=== PATIENT | male | born 1970 | race Caucasian/White ===

== ENCOUNTER 2018-10-16 12:14 | Emergency (ER) | payer OTHER ==
[2018-10-16 12:21] VITALS: TEMP 98.5
[2018-10-16] MEDS ORDERED: LIDOCAINE 1% INJ 10MG/ML (20 ML MDV) SQ ONE (12:29)
[2018-10-16] MEDS ORDERED: DIPH,PERTUS(ACELL)TETVAC-LF 0.5 ML VIAL IM ONE (12:35)
--- NOTE | 2018-10-16 13:07 | ED ---
General Adult HPI - General Chief complaint: Wound/Laceration Stated complaint: Forehead laceration-[facility] Time Seen by Provider: 10/16/18 12:28 Source: patient, RN notes reviewed Mode of arrival: ambulatory Limitations: no limitations - History of Present Illness Initial comments: 48-year-old male presents to the emergency department for a chief complaint of laceration above the left eyebrow. This occurred approximately one hour prior to arrival. Patient was at work when an air hose came loose and the air caused a laceration in the forehead. Patient denies headache. Patient denies any pain in the left eye. Patient does not have any other complaints at this time. Patient does not believe he is up-to-date on tetanus.Patient has no other compla ints at this time including shortness of breath, chest pain, abdominal pain, nausea or vomiting, headache, or visual changes. - Related Data Allergies Allergy/AdvReac Type Severity Reaction Status Date / Time Sulfa (Sulfonamide Allergy Unknown Verified 10/16/18 12:21 Antibiotics) Review of Systems ROS Statement: Those systems with pertinent positive or pertinent negative responses have been documented in the HPI. ROS Other: All systems not noted in ROS Statement are negative. Past Medical History Additional Past Medical History / Comment(s): chronic back pain History of Any Multi-Drug Resistant Organisms: None Reported Past Surgical History: No Surgical Hx Reported Past Psychological History: No Psychological Hx Reported Smoking Status: Never smoker Past Alcohol Use History: Occasional Past Drug Use History: None Reported General Exam Limitations: no limitations General appearance: alert, in no apparent distress Head exam: Present: atraumatic, normocephalic, normal inspection Eye exam: Present: normal appearance, PERRL, EOMI, other (Laceration present superior to the left eyebrow extending about 3 cm. There is also abrasion present within the left eyebrow. no trauma to cornea). Absent: scleral icterus, conjunctival injection, periorbital swelling, periorbital tenderness ENT exam: Present: normal exam, normal oropharynx, mucous membranes moist, TM's normal bilaterally, normal external ear exam Neck exam: Present: normal inspection, full ROM. Absent: tenderness, meningismus, lymphadenopathy Respiratory exam: Present: normal lung sounds bilaterally. Absent: respiratory distress, wheezes, rales, rhonchi, stridor Cardiovascular Exam: Present: regular rate, normal rhythm, normal heart sounds. Absent: systolic murmur, diastolic murmur, rubs, gallop, clicks Neurological exam: Present: alert, oriented X3, CN II-XII intact Psychiatric exam: Present: normal affect, normal mood Course Vital Signs 10/16/18 12:19 Temperature 98.5 F Pulse Rate 76 Respiratory 18 Rate Blood Pressure 154/91 O2 Sat by Pulse 98 Oximetry Procedures - Laceration Laceration #1 Consent Obtained: verbal consent Indication: laceration Site: face Size (cm): 3 Description: linear Depth: simple, single layer Anesthetic Used: lidocaine 1% Anesthesia Technique: local infiltration Amount (mls): 4 Pre-repair: wound explored, irrigated extensively, deep structures intact Type of Sutures: other (ethilon) Size of Sutures: 5-0 Number of Sutures: 4 Technique: simple, interrupted Patient Tolerated Procedure: well, no complications Medical Decision Making - Medical Decision Making 48-year-old male presents to the emergency department for a chief complaint of laceration noted above the left eyebrow. This has been present for about one hour after an air hose came loose and caused a laceration above his left eyebrow. This was cleaned thoroughly with normal saline and sutured with 4 simple interrupted injuries. There is a small abrasion noted within the right eyebrow. No trauma to the orbit, cornea. Patient updated on tetanus. Given strict return precautions. Follow-up with primary care. Disposition Clinical Impression: Laceration Disposition: HOME SELF-CARE Condition: Good Instructions (If sedation given, give patient instructions): Care For Your Stitches (ED), Laceration (ED) Additional Instructions: Please keep area clean and monitor for signs of infection. Return if these occur. Return in 5 days to have sutures removed. Follow up with primary care for a recheck in 1-2 days. Is patient prescribed a controlled substance at d/c from ED?: No Referrals: Maria Reyes III, MD [Primary Care Provider] - 1-2 days Time of Disposition: 13:05
[2018-10-16 13:35] VITALS: BP 123/95; PULSE 68; RESP 16
== END 2018-10-16 13:30 | disposition home or self-care (01) ==
LOC: EC 12:14
DX: S01.81XA Laceration without foreign body of other part of head, initial encounter (principal); Z23 Encounter for immunization; Z88.2 Allergy status to sulfonamides; W22.8XXA Striking against or struck by other objects, initial encounter; Y92.69 Other specified industrial and construction area as the place of occurrence of the external cause; Y99.0 Civilian activity done for income or pay
CPT/HCPCS: 90715; 99282; 12013; 90471; J2001

== ENCOUNTER 2020-02-24 12:43 | Emergency (ER) | payer OTHER ==
[2020-02-24 12:50] VITALS: RESP 18
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
[2020-02-24 14:17] VITALS: BP 108/78; PULSE 80; TEMP 98.7
== END 2020-02-24 14:17 | disposition home or self-care (01) ==
LOC: EC 12:43
DX: R07.81 Pleurodynia (principal); Z88.2 Allergy status to sulfonamides; V49.49XA Driver injured in collision with other motor vehicles in traffic accident, initial encounter; Y92.69 Other specified industrial and construction area as the place of occurrence of the external cause; Y99.0 Civilian activity done for income or pay
CPT/HCPCS: 71046; 99284

== ENCOUNTER 2020-02-26 09:22 | Inpatient (IN) | payer OTHER ==
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
[2020-02-26] MEDS ORDERED: MORPHINE SULFATE 4 MG/ML SYRINGE IVP STA (09:47)
[2020-02-26] MEDS ORDERED: KETOROLAC 30 MG/ML 1 ML VIAL IVP STA (09:47)
[2020-02-26] MEDS ORDERED: SODIUM CHLORIDE 0.9% 1,000 ML IV ONE (09:47)
[2020-02-26 10:00] LABS: Basophils % (A) 0 %; Eosinophils # (A) 0.2 k/uL (0-0.7); Eosinophils % (A) 2 %; HCT 44.8 % (39.0-53.0); HGB 14.6 gm/dL (13.0-17.5); Lymphocytes # (A) 1.7 k/uL (1.0-4.8); Lymphocytes % (A) 22 %; MCH 32.1 pg (25.0-35.0); MCHC 32.6 g/dL (31.0-37.0); MCV 98.6 fL (80.0-100.0); Mean Platelet Volume 7.8; Monocytes # (A) 0.6 k/uL (0-1.0); Monocytes % (A) 8 %; Neutrophils # (A) 5.1 k/uL (1.3-7.7); Neutrophils % (A) 65 %; Platelet Count 278 k/uL (150-450); RBC 4.55 m/uL (4.30-5.90); RDW 12.2 % (11.5-15.5); WBC 7.8 k/uL (3.8-10.6)
[2020-02-26 10:18] LABS: Partial Thromboplastin Time 24.1 sec (22.0-30.0); Prothrombin Time 10.1 sec (9.0-12.0)
[2020-02-26 10:22] LABS: ALT 45 U/L (4-49); AST 36 U/L (17-59); African American GFR (CKD) >90 (>60 ml/min/1.73 sqM); Albumin 4.1 g/dL (3.5-5.0); Alcohol <10 mg/dL; Alkaline Phosphatase 47 U/L (38-126); Anion Gap 7 mmol/L; Blood Urea Nitrogen 16 mg/dL (9-20); Carbon Dioxide 26 mmol/L (22-30); Chloride 107 mmol/L (98-107); Glucose 93 mg/dL (74-99); Non-African American GFR(CKD) >90 (>60 ml/min/1.73 sqM); Sodium 140 mmol/L (137-145); Total Bilirubin 0.9 mg/dL (0.2-1.3); Total Protein 6.9 g/dL (6.3-8.2)
[2020-02-26 10:23] LABS: Potassium 4.7 mmol/L (3.5-5.1)
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
[2020-02-26] MEDS ORDERED: ONDANSETRON 4 MG/2 ML VIAL IVP PRN (11:49)
[2020-02-26] MEDS ORDERED: NALOXONE 0.4 MG/ML 1 ML VIAL IV PRN (11:49)
[2020-02-26] MEDS ORDERED: IBUPROFEN 400 MG TAB PO PRN (11:49)
[2020-02-26] MEDS ORDERED: ACETAMINOPHEN TAB 325 MG TAB PO PRN (11:49)
[2020-02-26] MEDS ORDERED: MORPHINE SULFATE 4 MG/ML SYRINGE IV PRN (11:49)
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
[2020-02-26] MEDS: KETOROLAC 30 MG/ML 1 ML VIAL IVP PRN ×2 (16:03→23:07)
[2020-02-26] MEDS ORDERED: diphenhydrAMINE 50 MG/ML 1 ML VIAL IVP ONE (18:58)
[2020-02-27] MEDS: KETOROLAC 30 MG/ML 1 ML VIAL IVP PRN ×2 (08:31→22:44)
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
--- NOTE | 2020-02-27 13:04 | P.PN ---
Subjective Patient's pain is better but when he takes a deep breath it hurts a lot He has a sternal fracture with substernal hematoma EKG was normal Trace pericardial fluid 2-D echo report pending Afebrile 98.2F pulse rate in the 60s, blood pressure 125/78 mmHg Breath sounds are clear no rhonchi no crackles Soft heart sounds no S3 gallop or murmur Impression Sternal fracture, displaced Substernal hematoma Trace pericardial effusion Normal EKG and normal heart sounds From a cardiac standpoint other than 2-D echo and Doppler study no other workup is needed at this point and if his echo is near normal then from a cardiac standpoint he may go home Objective - Vital Signs Vital signs: Vital Signs Temp 98.2 F 02/27/20 08:20 Pulse 65 02/27/20 08:20 Resp 18 02/27/20 08:20 BP 125/78 02/27/20 08:20 Pulse Ox 96 02/27/20 08:20 Intake & Output 02/26/20 02/27/20 02/27/20 18:59 06:59 18:59 Intake Total 240 480 465 Balance 240 480 465 Weight 84.822 kg 77.5 kg Intake: Oral 240 480 465 Other: # Voids 2 3 - Labs CBC & Chem 7: 02/26/20 09:46 02/26/20 09:46
[2020-02-28] MEDS: KETOROLAC 30 MG/ML 1 ML VIAL IVP PRN (09:21)
[2020-02-28 10:07] VITALS: BP 119/74; PULSE 72; RESP 18; TEMP 98
--- NOTE | 2020-02-28 11:49 | ECHOF ---
Referral Reason:pericardial effusion MEASUREMENTS -------- HEIGHT: 188.0 cm WEIGHT: 84.8 kg BP: 120/91 RVIDd: 3.7 cm (< 3.3) IVSd: 1.3 cm (0.6 - 1.1) LVIDd: 4.5 cm (3.9 - 5.3) LVPWd: 1.4 cm (0.6 - 1.1) IVSs: 1.7 cm LVIDs: 3.2 cm LVPWs: 2.2 cm LAESV Index (A-L): 38.29 ml/m Ao Diam: 3.9 cm (2.0 - 3.7) AV Cusp: 2.3 cm (1.5 - 2.6) MV EXCURSION: 26.377 mm (> 18.000) MV EF SLOPE: 229 mm/s (70 - 150) EPSS: 0.5 cm MV E Cory: 0.51 m/s MV DecT: 178 ms MV A Cory: 0.49 m/s MV E/A Ratio: 1.04 RAP: 20.00 mmHg RVSP: 51.58 mmHg FINDINGS -------- Sinus rhythm. This was a technically adequate study. The left ventricular size is normal. There is moderate concentric left ventricular hypertrophy. O verall left ventricular systolic function is normal with, an EF between 55 - 60 %. The diastolic fi lling pattern is normal for the age of the patient 5.14. The right ventricle is mild to moderately enlarged. LA is moderately dilated 34-39 ml/m2 The right atrium is mildly enlarged. Interatrial and interventricular septum intact. The aortic valve is trileaflet and appears structurally normal. There is no evidence of aortic regu rgitation. There is no evidence of aortic stenosis. [id number] mitral regurgitation is present. [id number] tricuspid regurgitation present. There is mild to moderate pulmonary hypertension. The right ventricular systolic pressure, as measured by Doppler, is 51.58mmHg. There is no pulmonic regurgitation present. The aortic root size is normal. The inferior vena cava is dilated with poor inspiratory collapse which is consistent with estimated r ight atrial pressure of 20 mmHg. There is no pericardial effusion. CONCLUSIONS -------- 1. The left ventricular size is normal. 2. There is moderate concentric left ventricular hypertrophy. 3. Overall left ventricular systolic function is normal with, an EF between 55 - 60 %. 4. The diastolic filling pattern is normal for the age of the patient 5.14 5. The right ventricle is mild to moderately enlarged. 6. LA is moderately dilated 34-39 ml/m2 7. The right atrium is mildly enlarged. 8. [id number] mitral regurgitation is present. 9. Oqjr-zv-marqqhps tricuspid regurgitation present. 10. There is mild to moderate pulmonary hypertension. 11. The right ventricular systolic pressure, as measured by Doppler, is 51.58mmHg. 12. The inferior vena cava is dilated with poor inspiratory collapse which is consistent with estimat ed right atrial pressure of 20 mmHg. SHOE SHANKER: Chinyere Novak RDCS
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
== END 2020-02-28 12:56 | disposition home or self-care (01) | DRG 565 ==
LOC: EC 09:22 → 3SCARD 11:32
PROVIDERS: ADMIT Surgery Plastic and Reconstructive Surgery; ATTEND Surgery Plastic and Reconstructive Surgery
DX: S22.22XA Fracture of body of sternum, initial encounter for closed fracture (principal); I31.3 Pericardial effusion (noninflammatory); G89.29 Other chronic pain; N40.0 Benign prostatic hyperplasia without lower urinary tract symptoms; S20.219A Contusion of unspecified front wall of thorax, initial encounter; E27.8 Other specified disorders of adrenal gland; M54.9 Dorsalgia, unspecified; Z11.59 Encounter for screening for other viral diseases; V43.52XA Car driver injured in collision with other type car in traffic accident, initial encounter; Z88.2 Allergy status to sulfonamides; Y92.410 Unspecified street and highway as the place of occurrence of the external cause; Z82.49 Family history of ischemic heart disease and other diseases of the circulatory system
CPT/HCPCS: 71260; 74177; 80053; 80320; 84484; 85025; 85610; 85730; 86850; 86900; 86901; 93005; 93306; 96361; 96374; 96375; 99285

== ENCOUNTER → 2020-04-17 | Outpatient (CLI) | payer OTHER ==
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
== END | disposition home or self-care (01) ==
LOC: RADXRMAIN 11:12
PROVIDERS: ATTEND Family Medicine
DX: M50.30 Other cervical disc degeneration, unspecified cervical region (principal); M47.812 Spondylosis without myelopathy or radiculopathy, cervical region; S22.20XD Unspecified fracture of sternum, subsequent encounter for fracture with routine healing
CPT/HCPCS: 71120; 72050

== ENCOUNTER → 2020-05-20 | Outpatient (CLI) | payer OTHER ==
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
== END | disposition home or self-care (01) ==
LOC: RADCTMAIN 06:30
PROVIDERS: ATTEND Family Medicine
DX: S22.22XA Fracture of body of sternum, initial encounter for closed fracture (principal)
CPT/HCPCS: 71250

== ENCOUNTER → 2020-09-14 | Outpatient (CLI) | payer OTHER ==
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
== END | disposition home or self-care (01) ==
LOC: RADCTMAIN 07:56
PROVIDERS: ATTEND Family Medicine
DX: S22.20XA Unspecified fracture of sternum, initial encounter for closed fracture (principal); Z88.2 Allergy status to sulfonamides
CPT/HCPCS: 71250

== ENCOUNTER 2020-10-20 09:10 | Day surgery (SDC) | payer BC ==
[2020-10-16 13:21] VITALS: BMI 25.7
[~2020-10-20 09:10] MED LIST: LACTATED RINGERS 1,000 ML IV SCH; LIDOCAINE 1% (10MG/ML) FOR IV START INTRADERMA PRN
[2020-10-20 09:42] VITALS: TEMP 97
[2020-10-20] MEDS ORDERED: PROPOFOL 10 MG/ML 20 ML VIAL IV ONE (10:03)
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
--- NOTE | 2020-10-20 10:18 | P.PCN ---
Date of Procedure: 10/20/20 Procedure(s) Performed: PREOPERATIVE DIAGNOSIS: Colon cancer screening POSTOPERATIVE DIAGNOSIS: Normal exam PROCEDURE: Colonoscopy ANESTHESIA: MAC SURGEON: Manuel Brownlee M.D. SPECIMENS: None ENDOSCOPIC PROCEDURE: The patient was placed on the endoscopy table in the left decubitus position. The Olympus colonoscope was inserted into the anus and passed under direct visualization to the base of the cecum. The appendiceal orifice was visualized. From that point the scope was slowly withdrawn inspecti ng all surfaces carefully. There were no neoplastic inflammatory or polypoid lesions throughout the cecum, ascending, transverse, descending, sigmoid and rectum. There was no visible diverticulosis noted. Digital rectal examination was normal. The patient was taken to the recovery room in stable condition per anesthesia guidelines. RECOMMENDATIONS: Resume diet. Follow-up colonoscopy 10 years.
[2020-10-20 10:39] VITALS: BP 113/80; PULSE 66; RESP 18
== END 2020-10-20 11:00 | disposition home or self-care (01) ==
LOC: ORWHC2ENDO 09:10
PROVIDERS: ATTEND Surgery
DX: Z12.11 Encounter for screening for malignant neoplasm of colon (principal); G89.29 Other chronic pain; M54.9 Dorsalgia, unspecified; Z86.79 Personal history of other diseases of the circulatory system; Z87.81 Personal history of (healed) traumatic fracture; Z86.39 Personal history of other endocrine, nutritional and metabolic disease; Z87.898 Personal history of other specified conditions; Z88.2 Allergy status to sulfonamides; Z91.011 Allergy to milk products; Z91.012 Allergy to eggs; Z91.018 Allergy to other foods; Z82.49 Family history of ischemic heart disease and other diseases of the circulatory system; Z80.3 Family history of malignant neoplasm of breast
CPT/HCPCS: J2704; G0121

== ENCOUNTER 2020-11-13 18:12 | Emergency (ER) | payer BC, OTHER ==
[2020-11-13 18:28] VITALS: BP 127/84; PULSE 62; RESP 22; TEMP 98
[2020-11-13 20:53] LABS: Basophils % (A) 1 %; Eosinophils # (A) 0.3 k/uL (0-0.7); Eosinophils % (A) 4 %; HCT 41.9 % (39.0-53.0); HGB 14.6 gm/dL (13.0-17.5); Lymphocytes # (A) 2.1 k/uL (1.0-4.8); Lymphocytes % (A) 34 %; MCHC 34.8 g/dL (31.0-37.0); Mean Platelet Volume 7.1; Monocytes # (A) 0.4 k/uL (0-1.0); Monocytes % (A) 7 %; Neutrophils # (A) 3.2 k/uL (1.3-7.7); Neutrophils % (A) 53 %; Platelet Count 297 k/uL (150-450); RBC 4.56 m/uL (4.30-5.90); RDW 11.8 % (11.5-15.5); WBC 6.1 k/uL (3.8-10.6)
[2020-11-13 21:04] LABS: ALT 23 U/L (4-49); AST 26 U/L (17-59); African American GFR (CKD) >90 (>60 ml/min/1.73 sqM); Albumin 4.1 g/dL (3.5-5.0); Alkaline Phosphatase 63 U/L (38-126); Anion Gap 8 mmol/L; Blood Urea Nitrogen 15 mg/dL (9-20); Calcium 9.3 mg/dL (8.4-10.2); Carbon Dioxide 27 mmol/L (22-30); Chloride 104 mmol/L (98-107); Glucose 94 mg/dL (74-99); Magnesium 2.3 mg/dL (1.6-2.3); Non-African American GFR(CKD) >90 (>60 ml/min/1.73 sqM); Potassium 4.2 mmol/L (3.5-5.1); Sodium 139 mmol/L (137-145); Total Bilirubin 0.4 mg/dL (0.2-1.3); Total Protein 6.7 g/dL (6.3-8.2)
[2020-11-13 21:11] LABS: D-Dimer 0.23 mg/L FEU (<0.60); Partial Thromboplastin Time 25.5 sec (22.0-30.0); Prothrombin Time 10.8 sec (9.0-12.0)
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
== END 2020-11-13 22:17 | disposition home or self-care (01) ==
LOC: EC 18:12
DX: R06.02 Shortness of breath (principal); Z20.822 Contact with and (suspected) exposure to COVID-19
CPT/HCPCS: 36415; 71046; 80053; 83605; 83735; 83880; 84484; 85025; 85379; 85610; 85730; 87635; 93005; 99285

== ENCOUNTER → 2020-12-29 | Outpatient (CLI) | payer OTHER ==
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
== END | disposition home or self-care (01) ==
LOC: RADCTMAIN 09:55
PROVIDERS: ATTEND Thoracic Surgery (Cardiothoracic Vascular Surgery)
DX: S22.22XA Fracture of body of sternum, initial encounter for closed fracture (principal)
CPT/HCPCS: 71250

== ENCOUNTER → 2021-08-17 | Outpatient (CLI) | payer BC ==
--- NOTE | 2021-08-17 10:30 | CT ---
EXAMINATION TYPE: CT adrenal glands wo/w con DATE OF EXAM: 08/17/2021 COMPARISON: CT CAP 02/26/2020. HISTORY: Lt adrenal adenoma CT DLP: 1400 mGycm, Automated Exposure Control for Dose Reduction was Utilized. CONTRAST: CT scan of the abdomen is performed with oral and without and with IV Contrast, patient injected with 100 mL of Isovue 300. Adrenal gland protocol. FINDINGS: LUNG BASES: There is mild bibasilar linear scarring and\or atelectasis. LIVER/GB: No significant abnormality is appreciated. PANCREAS: No significant abnormality is seen. SPLEEN: No significant abnormality is seen. ADRENALS:. There is 1.5 cm left adrenal mass stable in size from prior CT. Hounsfield units average - 4 on noncontrast images and enhances to 40 on 1 minute postcontrast images with washout to 3 Hounsfie ld units on 15 minute delayed images. Imaging characteristics consistent with benign lipid rich adeno ma. KIDNEYS: No renal calculi on noncontrast CT. Cortical volume loss lower pole left kidney redemonstrat ed. Symmetric cortical uptake and excretion without hydronephrosis seen bilaterally. BOWEL: Oral contrast does not reach colonic level. No suspicious small or large bowel dilatation. LYMPH NODES: No greater than 1cm abdominal lymph nodes are appreciated. OSSEOUS STRUCTURES: No significant abnormality is seen. OTHER: No significant additional abnormality is seen. IMPRESSION: Stable 1.5 cm left adrenal mass consistent with benign lipid rich adenoma.
== END | disposition home or self-care (01) ==
LOC: RADCTMAIN 08:30
PROVIDERS: ATTEND Internal Medicine
DX: E27.8 Other specified disorders of adrenal gland (principal)
CPT/HCPCS: 74170; Q9967

== ENCOUNTER → 2021-08-21 | Outpatient (CLI) | payer OTHER ==
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
== END | disposition home or self-care (01) ==
LOC: RADMRIMAIN 14:43
PROVIDERS: ATTEND Physician Assistant Medical
DX: M50.323 Other cervical disc degeneration at C6-C7 level (principal)
CPT/HCPCS: 72141

== ENCOUNTER 2021-09-15 15:08 | Observation (INO) | payer BC, OTHER ==
--- NOTE | 2021-09-15 15:53 | XR ---
EXAMINATION TYPE: XR chest 2V DATE OF EXAM: 09/15/2021 COMPARISON: 11/13/2020 HISTORY: Shortness of breath TECHNIQUE: Frontal and lateral views of the chest are obtained. FINDINGS: Scattered senescent parenchymal changes noted. Hyperinflation compatible with COPD. No evidence for infiltrate. No evidence for atelectasis. Heart size is stable. Mediastinal structures are stable and grossly unremarkable. No evidence for hilar prominence. Degenerative changes dorsal spine. IMPRESSION: 1. No evidence for acute pulmonary disease.
[2021-09-15 17:10] LABS: Basophils % (A) 1 %; Eosinophils # (A) 0.1 k/uL (0-0.7); Eosinophils % (A) 2 %; HCT 43.4 % (39.0-53.0); HGB 14.8 gm/dL (13.0-17.5); Lymphocytes # (A) 1.9 k/uL (1.0-4.8); Lymphocytes % (A) 25 %; MCH 32.2 pg (25.0-35.0); MCHC 34.2 g/dL (31.0-37.0); MCV 94.3 fL (80.0-100.0); Mean Platelet Volume 7.9; Monocytes # (A) 0.5 k/uL (0-1.0); Monocytes % (A) 7 %; Neutrophils # (A) 4.8 k/uL (1.3-7.7); Neutrophils % (A) 65 %; Platelet Count 311 k/uL (150-450); RDW 12.3 % (11.5-15.5); WBC 7.4 k/uL (3.8-10.6)
[2021-09-15 17:20] LABS: Albumin 4.4 g/dL (3.5-5.0); Calcium 9.3 mg/dL (8.4-10.2); Magnesium 2.3 mg/dL (1.6-2.3); Total Bilirubin 0.7 mg/dL (0.2-1.3); Total Protein 7.5 g/dL (6.3-8.2)
[2021-09-15 17:21] LABS: Prothrombin Time 10.6 sec (9.0-12.0)
[2021-09-15] MEDS ORDERED: MORPHINE SULFATE 4 MG/ML SYRINGE IV PRN (18:34)
[2021-09-15] MEDS ORDERED: NALOXONE 0.4 MG/ML 1 ML VIAL IV PRN (18:34)
[2021-09-15] MEDS ORDERED: ONDANSETRON 4 MG/2 ML VIAL IVP PRN (18:34)
[2021-09-15] MEDS ORDERED: ACETAMINOPHEN TAB 325 MG TAB PO PRN (18:34)
[2021-09-15] MEDS ORDERED: MELATONIN 3 MG TABLET PO PRN (18:34)
[2021-09-15] MEDS ORDERED: ASPIRIN 81 MG PO STA (18:34)
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
[2021-09-15] MEDS ORDERED: diphenhydrAMINE 50 MG/ML 1 ML VIAL IVP STA (19:28)
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
[2021-09-16] MEDS ORDERED: HYDROcodone/APAP 10-325MG 1 EACH TAB PO PRN (14:19)
[2021-09-16 14:24] VITALS: BP 111/69; PULSE 64; RESP 16; TEMP 98.2
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
== END 2021-09-16 15:59 | disposition home or self-care (01) ==
LOC: EC 15:08 → 6NMEDSUR 18:34
PROVIDERS: ADMIT Hospitalist; ATTEND Hospitalist
DX: R07.89 Other chest pain (principal); M94.8X8 Other specified disorders of cartilage, other site; M79.2 Neuralgia and neuritis, unspecified; R07.1 Chest pain on breathing; G89.29 Other chronic pain; M54.9 Dorsalgia, unspecified; I08.1 Rheumatic disorders of both mitral and tricuspid valves; Z20.822 Contact with and (suspected) exposure to COVID-19; Z79.1 Long term (current) use of non-steroidal anti-inflammatories (NSAID); Z79.899 Other long term (current) drug therapy; Z91.012 Allergy to eggs; Z91.011 Allergy to milk products; Z88.2 Allergy status to sulfonamides; Z91.018 Allergy to other foods; Z87.81 Personal history of (healed) traumatic fracture; Z86.79 Personal history of other diseases of the circulatory system; Z82.49 Family history of ischemic heart disease and other diseases of the circulatory system; Z80.3 Family history of malignant neoplasm of breast
CPT/HCPCS: 96374; 99285; 36415; 93005; 93306; 80053; 83735; 84484; 85025; 85610; 85730; 87635; 71046; G0378 ×2; J1200

== ENCOUNTER → 2022-07-14 | Outpatient (CLI) | payer OTHER ==
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
== END | disposition home or self-care (01) ==
LOC: RADXRMAIN 16:44
PROVIDERS: ATTEND Emergency Medicine
DX: S63.501A Unspecified sprain of right wrist, initial encounter (principal); M79.89 Other specified soft tissue disorders

== ENCOUNTER → 2022-08-16 | Outpatient (CLI) | payer OTHER ==
--- NOTE | 2022-08-18 08:46 | MR ---
EXAMINATION TYPE: MR wrist RT wo con DATE OF EXAM: 08/16/2022 COMPARISON: Radiograph 07/25/2022 HISTORY: 52-year-old male M2 5.531 Right wrist pain and limited movement due to work injury. TECHNIQUE: Multiplanar, multisequence images of the right wrist were obtained without IV contrast. FINDINGS: There is focal marrow edema involving the volar distal pole of the scaphoid without discrete fracture line seen. There is mild degenerative change involving the first CMC and triscaphe joints here. Mild adjacent soft tissue swelling. Additional focal marrow edema along the ulnar proximal aspect of the lunate bone. Mild to moderate ov erlying cartilage thinning overlying the area of marrow edema. 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 There may be some minimal undersurface fraying of the c entral disc, coronal image 9. The volar band of the lunotriquetral ligament appears intact. There is some cystic change at the ulnar styloid process and some degenerative change at the ulnar he ad as well. Suggestion of a partial split tear of the extensor carpi ulnaris with mild tenosynovial fluid and sof t tissue thickening here. There is no subluxation or dislocation of the tendon. Small to moderate joint effusion at the triquetral fusiform joint just adjacent. There appears to be degenerative signal throughout the lunotriquetral ligament. Some partial tearing is present as well. No litzy disruption is seen. Some soft tissue swelling and moderate tenosynovial fluid. Interstitial splits throughout the flexor carpi radialis. The dorsal extensor tendons appear intact. IMPRESSION: 1. Focal bone bruise at the distal pole of the scaphoid with adjacent soft tissue swelling. No discre te fracture line is seen.. If there was no focal injury, this may be edema reactive to underlying tri scaphe joint OA. Clinically correlate. 2. Focal bone marrow edema along the ulnar proximal aspect of the lunate bone. Mild to moderate thinn ing of overlying articular cartilage. Correlate for symptoms of ulnar impaction syndrome. The central disc of the TFCC appears grossly intact though with minimal undersurface fraying present. 3. [id number] degenerative change at the ulnocarpal joint. There is ECU tendinosis and mild ten osynovitis along with partial longitudinal split tear of the ECU here. Adjacent soft tissue swelling. 4. Moderate tenosynovitis involving the flexor carpi radialis with multiple longitudinal splits. Asso ciated soft tissue swelling. No retracted tear. 5. Degenerative change throughout the scapholunate ligament with areas of partial thickness tearing b ut no rupture.
== END | disposition home or self-care (01) ==
LOC: RADMRIMAIN 12:04
PROVIDERS: ATTEND Orthopaedic Surgery
DX: S60.211A Contusion of right wrist, initial encounter (principal); M19.031 Primary osteoarthritis, right wrist; M65.841 Other synovitis and tenosynovitis, right hand; M79.89 Other specified soft tissue disorders; X58.XXXA Exposure to other specified factors, initial encounter

== ENCOUNTER 2023-01-18 16:57 | Emergency (ER) | payer OTHER, BC ==
[2023-01-18 17:58] LABS: Basophils % (A) 0 %; Eosinophils # (A) 0.2 k/uL (0-0.7); Eosinophils % (A) 2 %; HCT 43.8 % (39.0-53.0); HGB 14.8 gm/dL (13.0-17.5); Lymphocytes # (A) 1.8 k/uL (1.0-4.8); Lymphocytes % (A) 26 %; MCH 31.6 pg (25.0-35.0); MCHC 33.7 g/dL (31.0-37.0); MCV 93.7 fL (80.0-100.0); Mean Platelet Volume 7.7; Monocytes # (A) 0.5 k/uL (0-1.0); Monocytes % (A) 7 %; Neutrophils # (A) 4.4 k/uL (1.3-7.7); Neutrophils % (A) 63 %; Platelet Count 316 k/uL (150-450); RBC 4.68 m/uL (4.30-5.90); RDW 12.3 % (11.5-15.5); WBC 6.9 k/uL (3.8-10.6)
[2023-01-18 18:06] LABS: Partial Thromboplastin Time 25.2 sec (22.0-30.0); Prothrombin Time 10.6 sec (9.0-12.0)
--- NOTE | 2023-01-18 18:17 | XR ---
EXAMINATION TYPE: XR chest 2V DATE OF EXAM: 01/18/2023 6:02 PM COMPARISON: Chest radiographs from 09/13/2022 TECHNIQUE: XR chest 2V Frontal and lateral views of the chest. CLINICAL INDICATION:Male, 52 years old with history of Chest Pain; FINDINGS: Lungs/Pleura: There is no evidence of pleural effusion, focal consolidation, or pneumothorax. Pulmonary vascularity: Unremarkable. Heart/mediastinum: Cardiomediastinal silhouette is unremarkable. Musculoskeletal: No acute osseous pathology. IMPRESSION: No acute cardiopulmonary disease/process.
[2023-01-18 18:19] LABS: ALT 37 U/L (4-49); AST 31 U/L (17-59); African American GFR (CKD) >90 (>60 ml/min/1.73 sqM); Albumin 4.2 g/dL (3.5-5.0); Alkaline Phosphatase 78 U/L (38-126); Anion Gap 8 mmol/L; Blood Urea Nitrogen 15 mg/dL (9-20); Carbon Dioxide 24 mmol/L (22-30); Chloride 106 mmol/L (98-107); Glucose 91 mg/dL (74-99); Magnesium 2.2 mg/dL (1.6-2.3); Non-African American GFR(CKD) >90 (>60 ml/min/1.73 sqM); Potassium 4.1 mmol/L (3.5-5.1); Sodium 138 mmol/L (137-145); Total Bilirubin 0.5 mg/dL (0.2-1.3); Total Protein 7.1 g/dL (6.3-8.2)
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
[2023-01-18] MEDS ORDERED: HYDROmorphone 0.5 MG/0.5 ML SYRINGE IM STA (20:34)
[2023-01-18] MEDS ORDERED: KETOROLAC 15 MG/ML 1 ML VIAL IM STA (20:35)
[2023-01-18 21:33] VITALS: BP 134/87; PULSE 69; RESP 18; TEMP 98.6
== END 2023-01-18 21:33 | disposition home or self-care (01) ==
LOC: EC 16:57
DX: R07.1 Chest pain on breathing (principal); Z88.2 Allergy status to sulfonamides; Z91.018 Allergy to other foods; Z91.012 Allergy to eggs; Z88.1 Allergy status to other antibiotic agents
CPT/HCPCS: 36415; 93005; 80053; 83735; 84484; 85025; 85610; 85730; 71046; 99285; 96372 ×2; J1885; J1170

== ENCOUNTER → 2023-02-15 | Outpatient (CLI) | payer OTHER, BC ==
[2023-02-15 11:02] VITALS: BP 117/83; PULSE 65; RESP 16; TEMP 97.9
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
== END ==
LOC: PNWHC3 07:43
PROVIDERS: ATTEND Specialist
DX: S22.20XK Unspecified fracture of sternum, subsequent encounter for fracture with nonunion (principal); V89.2XXD Person injured in unspecified motor-vehicle accident, traffic, subsequent encounter; M19.90 Unspecified osteoarthritis, unspecified site; Z91.011 Allergy to milk products; Z91.018 Allergy to other foods; Z88.2 Allergy status to sulfonamides
CPT/HCPCS: 99211

== ENCOUNTER 2023-09-01 11:09 | Emergency (ER) | payer BC ==
[2023-09-01 11:59] LABS: Basophils # (A) 0.1 k/uL (0-0.2); Basophils % (A) 1 %; Eosinophils # (A) 0.2 k/uL (0-0.7); Eosinophils % (A) 2 %; HCT 43.4 % (39.0-53.0); HGB 15.1 gm/dL (13.0-17.5); Lymphocytes # (A) 1.8 k/uL (1.0-4.8); Lymphocytes % (A) 26 %; MCH 32.4 pg (25.0-35.0); MCHC 34.8 g/dL (31.0-37.0); Mean Platelet Volume 8.2; Monocytes # (A) 0.6 k/uL (0-1.0); Monocytes % (A) 9 %; Neutrophils # (A) 4.2 k/uL (1.3-7.7); Neutrophils % (A) 60 %; Platelet Count 307 k/uL (150-450); RBC 4.67 m/uL (4.30-5.90); RDW 12.6 % (11.5-15.5); WBC 6.9 k/uL (3.8-10.6)
[2023-09-01 12:09] LABS: ALT 44 U/L (4-49); AST 36 U/L (17-59); African American GFR (CKD) >90 (>60 ml/min/1.73 sqM); Albumin 4.3 g/dL (3.5-5.0); Alkaline Phosphatase 90 U/L (38-126); Anion Gap 8 mmol/L; Blood Urea Nitrogen 17 mg/dL (9-20); Calcium 9.4 mg/dL (8.4-10.2); Carbon Dioxide 24 mmol/L (22-30); Chloride 110 mmol/L (98-107); Glucose 97 mg/dL (74-99); Magnesium 2.1 mg/dL (1.6-2.3); Non-African American GFR(CKD) 86 (>60 ml/min/1.73 sqM); Potassium 4.4 mmol/L (3.5-5.1); Sodium 142 mmol/L (137-145); Total Bilirubin 0.5 mg/dL (0.2-1.3); Total Protein 7.4 g/dL (6.3-8.2)
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
--- NOTE | 2023-09-01 12:44 | XR ---
EXAMINATION TYPE: XR chest 2V DATE OF EXAM: 09/01/2023 COMPARISON: 01/18/2023 HISTORY: 53-year-old male with chest pain TECHNIQUE: PA and lateral views FINDINGS: Heart normal size. Aorta and pulmonary vasculature within normal limits. Strandy atelectasis or scarr ing at the left base remains unchanged. No consolidation or pleural effusion. IMPRESSION: Strandy scarring or atelectasis at the left base. Otherwise, no acute process seen.
[2023-09-01 12:48] LABS: INR 0.9 (<1.2); Partial Thromboplastin Time 25.7 sec (22.0-30.0); Prothrombin Time 10.4 sec (10.0-12.5)
[2023-09-01 13:34] VITALS: BP 137/91; PULSE 70; RESP 18; TEMP 98.6
== END 2023-09-01 13:17 | disposition home or self-care (01) ==
LOC: EC 11:09
DX: R07.89 Other chest pain (principal); Z88.2 Allergy status to sulfonamides; Z91.012 Allergy to eggs; Z91.011 Allergy to milk products; Z88.8 Allergy status to other drugs, medicaments and biological substances
CPT/HCPCS: 36415; 71046; 80053; 83735; 84484; 85025; 85610; 85730; 93005; 99285

== ENCOUNTER 2023-11-02 09:08 | Emergency (ER) | payer BC ==
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
[2023-11-02] MEDS: SODIUM CHLORIDE 0.9% 1,000 ML IV STA (09:35)
[2023-11-02] MEDS: KETOROLAC 15 MG/ML 1 ML VIAL IVP STA (09:35)
[2023-11-02 09:58] LABS: Partial Thromboplastin Time 25.5 sec (22.0-30.0); Prothrombin Time 10.7 sec (10.0-12.5)
--- NOTE | 2023-11-02 10:06 | XR ---
EXAMINATION TYPE: XR chest 2V DATE OF EXAM: 11/02/2023 COMPARISON: 126.4 INDICATION: Chest pain TECHNIQUE: Frontal and lateral views of the chest are obtained. FINDINGS: The heart size is normal. The pulmonary vasculature is normal. Some minimal linear opacities at the left base likely some atelectasis present previously. Scarring c ould be considered. Lung denton otherwise appear clear.. IMPRESSION: 1. There may be some minimal platelike atelectasis left base. No acute pulmonary process otherwise ev ident
[2023-11-02 10:07] LABS: Basophils % (A) 0 %; Eosinophils # (A) 0.1 k/uL (0-0.7); Eosinophils % (A) 1 %; HCT 43.4 % (39.0-53.0); HGB 14.5 gm/dL (13.0-17.5); Lymphocytes # (A) 1.4 k/uL (1.0-4.8); Lymphocytes % (A) 22 %; MCHC 33.4 g/dL (31.0-37.0); MCV 92.8 fL (80.0-100.0); Mean Platelet Volume 8.4; Monocytes # (A) 0.5 k/uL (0-1.0); Monocytes % (A) 8 %; Neutrophils # (A) 4.3 k/uL (1.3-7.7); Neutrophils % (A) 68 %; Platelet Count 339 k/uL (150-450); RBC 4.68 m/uL (4.30-5.90); WBC 6.3 k/uL (3.8-10.6)
[2023-11-02 10:23] LABS: ALT 37 U/L (4-49); AST 27 U/L (17-59); African American GFR (CKD) >90 (>60 ml/min/1.73 sqM); Albumin 4.1 g/dL (3.5-5.0); Alkaline Phosphatase 63 U/L (38-126); Anion Gap 10 mmol/L; Blood Urea Nitrogen 13 mg/dL (9-20); Calcium 9.1 mg/dL (8.4-10.2); Carbon Dioxide 20 mmol/L (22-30); Chloride 110 mmol/L (98-107); Glucose 128 mg/dL (74-99); Magnesium 2.2 mg/dL (1.6-2.3); Non-African American GFR(CKD) >90 (>60 ml/min/1.73 sqM); Potassium 3.6 mmol/L (3.5-5.1); Sodium 140 mmol/L (137-145); Total Bilirubin 0.9 mg/dL (0.2-1.3); Total Protein 6.9 g/dL (6.3-8.2)
[2023-11-02] MEDS: ONDANSETRON 4 MG/2 ML VIAL IVP STA (10:57)
[2023-11-02] MEDS: HYDROmorphone 0.5 MG/0.5 ML SYRINGE IVP STA (10:57)
[2023-11-02 11:12] VITALS: BP 107/67; PULSE 66; RESP 16; TEMP 98
== END 2023-11-02 11:15 | disposition home or self-care (01) ==
LOC: EC 09:08
DX: R07.89 Other chest pain (principal); Z88.2 Allergy status to sulfonamides; Z91.011 Allergy to milk products; Z91.012 Allergy to eggs; Z91.018 Allergy to other foods
CPT/HCPCS: 36415; 93005; 80053; 83735; 84484; 85025; 85610; 85730; 71046; 99285; 96374; 96375 ×2; 96361; J2405; J1885; J1170

== ENCOUNTER → 2024-02-15 | Outpatient (CLI) | payer OTHER, BC ==
--- NOTE | 2024-02-20 22:41 | CT ---
EXAMINATION TYPE: CT heart w calcium score DATE OF EXAM: 02/15/2024 COMPARISON: None HISTORY: Screening for cardiovascular disorder. 213.9 CT DLP: 96.40 mGycm Automated exposure control for dose reduction was used. CT CALCIUM SCORING Coronary calcium is a marker for plaque (fatty deposits) in a blood vessel or atherosclerosis (harden ing of the arteries). The presence and amount of calcium detected in a coronary artery by the CT sca n, indicates the presence and amount of atherosclerotic plaque. These calcium deposits appear years before the development of heart disease symptoms such as chest pain and shortness of breath. A calcium score is computed for each of the coronary arteries based upon the volume and density of th e calcium deposits. This can be referred to as your calcified plaque burden. It does not correspond directly to the percentage of narrowing in the artery but does correlate with the severity of the un derlying coronary atherosclerosis. PROCEDURE TECHNIQUE - Prospective Gating was used. Slice thickness: 3mm. Density threshold (HU): 130, Pixel threshold: 3, Algorithm: discrete. RESULTS Region: LM Calcium Score ([place]): 0 Volume (mm3): 0 Mass (g): 0 Region: RCA Calcium Score ([place]): 0 Volume (mm3): 0 Mass (g): 0 Region: LAD Calcium Score ([place]): 0 Volume (mm3): 0 Mass (g): 0 Region: CX Calcium Score ([place]): 0 Volume (mm3): 0 Mass (g): 0 Region: PDA Calcium Score ([place]): 0 Volume (mm3): 0 Mass (g): 0 Total: Calcium Score ([place]): 0 Volume (mm3): 0 Mass (g): 0 TOTAL CALCIUM SCORE: 0 IMPRESSION: Calcium Score: 0 Implication: No identifiable plaque. Risk of Coronary Artery Disease: Very low, generally less than 5%. Impression: 1. Very low risk for significant coronary artery stenosis CALCIUM SCORE IMPLICATION RISK OF C ORONARY ARTERY DISEASE 0 No identifiable plaque Very low, generally less than 5% 1-10 Minimal identifiable plaque Very unlikely, less than 10% 11-100 Definite, at least mild atherosclerotic plaque Mild or m inimal coronary narrowings likely 101-400 Definite, at least moderate atherosclerotic plaque Mild coronary ar colleen disease highly likely, significant narrowing possible 401 or Higher Extensive atherosclerotic plaque High lik elihood of at least one significant coronary narrowing
== END | disposition home or self-care (01) ==
LOC: RADCTMAIN 07:04
PROVIDERS: ATTEND Internal Medicine Clinical Cardiac Electrophysiology
DX: Z13.6 Encounter for screening for cardiovascular disorders (principal); I25.10 Atherosclerotic heart disease of native coronary artery without angina pectoris
CPT/HCPCS: 75571

== ENCOUNTER → 2024-05-09 | Outpatient (CLI) | payer OTHER ==
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
== END | disposition home or self-care (01) ==
LOC: RADCTMAIN 06:57
PROVIDERS: ATTEND Thoracic Surgery (Cardiothoracic Vascular Surgery)
DX: R91.1 Solitary pulmonary nodule (principal); R07.9 Chest pain, unspecified; Z87.311 Personal history of (healed) other pathological fracture
CPT/HCPCS: 71250; 78306; A9503

== ENCOUNTER 2024-09-07 07:17 | Emergency (ER) | payer BC, OTHER ==
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
[2024-09-07] MEDS: KETOROLAC 15 MG/ML 1 ML VIAL IVP STA (07:55)
[2024-09-07] MEDS: HYDROmorphone 0.5 MG/0.5 ML SYRINGE IVP STA (07:56)
[2024-09-07 07:59] LABS: Basophils # (A) 0.1 k/uL (0-0.2); Basophils % (A) 1 %; Eosinophils # (A) 0.3 k/uL (0-0.7); Eosinophils % (A) 5 %; HCT 44.6 % (39.0-53.0); HGB 14.6 gm/dL (13.0-17.5); Lymphocytes # (A) 1.8 k/uL (1.0-4.8); Lymphocytes % (A) 28 %; MCH 30.7 pg (25.0-35.0); MCHC 32.8 g/dL (31.0-37.0); MCV 93.5 fL (80.0-100.0); Mean Platelet Volume 7.6; Monocytes # (A) 0.5 k/uL (0-1.0); Monocytes % (A) 7 %; Neutrophils # (A) 3.7 k/uL (1.3-7.7); Neutrophils % (A) 57 %; Platelet Count 308 k/uL (150-450); RBC 4.77 m/uL (4.30-5.90); RDW 11.9 % (11.5-15.5); WBC 6.5 k/uL (3.8-10.6)
[2024-09-07 08:11] LABS: Prothrombin Time 10.7 sec (10.0-12.5)
[2024-09-07 08:14] LABS: ALT 60 U/L (4-49); AST 62 U/L (17-59); African American GFR (CKD) >90 (>60 ml/min/1.73 sqM); Albumin 4.1 g/dL (3.5-5.0); Alkaline Phosphatase 88 U/L (38-126); Anion Gap 9 mmol/L; Blood Urea Nitrogen 20 mg/dL (9-20); Calcium 9.3 mg/dL (8.4-10.2); Carbon Dioxide 22 mmol/L (22-30); Chloride 106 mmol/L (98-107); Glucose 103 mg/dL (74-99); Magnesium 2.1 mg/dL (1.6-2.3); Non-African American GFR(CKD) 89 (>60 ml/min/1.73 sqM); Potassium 4.1 mmol/L (3.5-5.1); Sodium 137 mmol/L (137-145); Total Bilirubin 0.4 mg/dL (0.2-1.3); Total Protein 6.7 g/dL (6.3-8.2)
--- NOTE | 2024-09-07 08:16 | XR ---
EXAMINATION TYPE: XR chest 2V DATE OF EXAM: 09/07/2024 8:09 AM COMPARISON: Chest radiographs from 11/02/2023, CT chest 05/09/2024 TECHNIQUE: XR chest 2V Frontal and lateral views of the chest. CLINICAL INDICATION:Male, 54 years old with history of Chest Pain; FINDINGS: Lungs/Pleura: There is no evidence of pleural effusion, focal consolidation, or pneumothorax. Pulmonary vascularity: Unremarkable. Heart/mediastinum: Cardiomediastinal silhouette is unremarkable. Musculoskeletal: No acute osseous pathology. Remote healed sternal fracture. IMPRESSION: No acute cardiopulmonary disease/process. [facility], , 09/07/2024 8:14 AM
[2024-09-07 09:19] VITALS: BP 131/89; PULSE 60; RESP 18; TEMP 98.7
== END 2024-09-07 09:28 | disposition home or self-care (01) ==
LOC: EC 07:17
DX: R07.89 Other chest pain (principal); Z88.2 Allergy status to sulfonamides; Z91.011 Allergy to milk products; Z91.012 Allergy to eggs; Z91.018 Allergy to other foods
CPT/HCPCS: 36415; 93005; 80053; 83735; 84484; 85025; 85610; 85730; 71046; 99285; 96374; 96375; J1885; J1171

== ENCOUNTER 2024-11-23 07:27 | Emergency (ER) | payer BC, OTHER ==
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
[2024-11-23] MEDS: SODIUM CHLORIDE 0.9% 1,000 ML IV STA (08:06)
[2024-11-23] MEDS: KETOROLAC 15 MG/ML 1 ML VIAL IVP STA (08:07)
[2024-11-23] MEDS: HYDROmorphone 1 MG/ML 1 ML SYRINGE IVP STA (08:08)
[2024-11-23 08:10] LABS: Basophils # (A) 0.05 10*3/uL (0.00-0.10); Basophils % (A) 0.9 %; Eosinophils # (A) 0.32 10*3/uL (0.04-0.35); HCT 44.6 % (39.6-50.0); HGB 15.6 g/dL (13.0-17.0); Lymphocytes # (A) 1.69 10*3/uL (0.90-5.00); Lymphocytes % (A) 31.6 %; MCV 91.6 fL (80.0-97.0); Mean Platelet Volume 9.9 fL (9.5-12.2); Monocytes # (A) 0.64 10*3/uL (0.20-1.00); Neutrophils # (A) 2.63 10*3/uL (1.80-7.70); Neutrophils % (A) 49.1 %; Platelet Count 319 10*3/uL (140-440); RBC 4.87 10*6/uL (4.40-5.60); RDW 12.1 % (11.5-14.5); WBC 5.35 10*3/uL (4.50-10.00)
[2024-11-23 08:27] LABS: Partial Thromboplastin Time 25.4 sec (22.0-30.0)
[2024-11-23 08:30] LABS: ALT 29 U/L (4-49); AST 28 U/L (17-59); African American GFR (CKD) >90 (>60 ml/min/1.73 sqM); Albumin 4.2 g/dL (3.5-5.0); Alkaline Phosphatase 61 U/L (38-126); Anion Gap 7 mmol/L; Blood Urea Nitrogen 15 mg/dL (9-20); Calcium 9.5 mg/dL (8.4-10.2); Carbon Dioxide 25 mmol/L (22-30); Chloride 106 mmol/L (98-107); Glucose 101 mg/dL (74-99); Magnesium 2.1 mg/dL (1.6-2.3); Non-African American GFR(CKD) 88 (>60 ml/min/1.73 sqM); Potassium 4.4 mmol/L (3.5-5.1); Sodium 138 mmol/L (137-145); Total Protein 7.1 g/dL (6.3-8.2)
--- NOTE | 2024-11-23 08:45 | XR ---
Chest, 2 view. CLINICAL INDICATION: Male, 54 years old with history of Chest Pain COMPARISON: 09/07/2019 TECHNIQUE: PA and lateral views the chest are obtained. FINDINGS: The lungs are clear and there is no consolidative or interstitial opacity. There is no pleural effusion or pneumothorax. The heart, pulmonary vasculature, mediastinum and cathy appear normal. The osseous structures are intact. IMPRESSION: No significant abnormality seen. No acute cardiopulmonary disease. [facility], , 11/23/2024 8:43 AM
[2024-11-23 10:10] VITALS: PULSE 60; RESP 20
[2024-11-23] MEDS: HYDROmorphone 0.5 MG/0.5 ML SYRINGE IVP STA (10:10)
[2024-11-23] MEDS: ACET/COD 300 MG/30 MG STARTER PACK 6 TAB BTL PO STA (10:13)
[2024-11-23 10:35] VITALS: BP 124/89; TEMP 97.8
== END 2024-11-23 10:35 | disposition home or self-care (01) ==
LOC: EC 07:27
DX: G89.29 Other chronic pain (principal); R07.89 Other chest pain; Z88.2 Allergy status to sulfonamides; Z91.011 Allergy to milk products; Z91.018 Allergy to other foods; Z87.81 Personal history of (healed) traumatic fracture
CPT/HCPCS: 36415; 93005; 80053; 83735; 84484; 85025; 85610; 85730; 71046; 99285; 96374; 96375; 96376; 96361; J1171 ×2; J1885